=== PATIENT | female | born 1950 | race Two or more races ===

== ENCOUNTER 2019-04-30 09:11 | Outpatient (CLI) | payer OTHER | END 2019-04-30 11:43 | disposition home or self-care (01) | LOC: LAB 09:11 | DX: E55.9 Vitamin D deficiency, unspecified (principal); M85.88 Other specified disorders of bone density and structure, other site; E21.3 Hyperparathyroidism, unspecified; E88.89 Other specified metabolic disorders; M81.8 Other osteoporosis without current pathological fracture; E56.1 Deficiency of vitamin K; E13.69 Other specified diabetes mellitus with other specified complication; I11.0 Hypertensive heart disease with heart failure; D53.9 Nutritional anemia, unspecified; N39.0 Urinary tract infection, site not specified; E04.0 Nontoxic diffuse goiter; E78.2 Mixed hyperlipidemia ==

== ENCOUNTER → 2019-04-30 | Outpatient (CLI) | payer OTHER ==
[~2019-04-30] MED LIST: FOLIC ACID1 MG PO; GABAPENTIN800 MG; GLIMEPIRIDE4 MG PO; HEARTBURN TREAT15 MG; HUMALOG100 U/ML; HumaLOG 100 UNIT/1 ML (3ML) SUBCUTANEO; INTEGRA F CAPS1 EACH PO; LEVAQUIN500 MG; LISINOPRIL20 MG; Lantus 1000 U/10 ML SUBCUTANEO; MULTI VITAMIN1 EACH PO; NEURONTIN PO; NEURONTIN800 MG; Neurin-Sl Tablet Sl SL; PLAVIX75 MG; PROTONIX40 MG PO; SURFAK240 M1 PO
== END | disposition home or self-care (01) ==
LOC: RAD 10:53
DX: M79.604 Pain in right leg (principal); M79.671 Pain in right foot; M25.571 Pain in right ankle and joints of right foot

== ENCOUNTER 2019-11-19 08:39 | Outpatient (CLI) | payer OTHER | END 2019-11-19 15:00 | disposition home or self-care (01) | LOC: LAB 08:39 | DX: I11.0 Hypertensive heart disease with heart failure (principal); N39.0 Urinary tract infection, site not specified; E78.2 Mixed hyperlipidemia; N36.2 Urethral caruncle; E22.2 Syndrome of inappropriate secretion of antidiuretic hormone; E55.9 Vitamin D deficiency, unspecified ==

== ENCOUNTER 2019-11-30 09:05 | Outpatient (CLI) | payer OTHER | END 2019-11-30 09:11 | disposition home or self-care (01) | LOC: LAB 09:05 | DX: E11.22 Type 2 diabetes mellitus with diabetic chronic kidney disease (principal); N18.4 Chronic kidney disease, stage 4 (severe); I12.9 Hypertensive chronic kidney disease with stage 1 through stage 4 chronic kidney disease, or unspecified chronic kidney disease; D63.1 Anemia in chronic kidney disease; N25.81 Secondary hyperparathyroidism of renal origin; E78.2 Mixed hyperlipidemia; E79.0 Hyperuricemia without signs of inflammatory arthritis and tophaceous disease; E55.9 Vitamin D deficiency, unspecified; C50.412 Malignant neoplasm of upper-outer quadrant of left female breast ==

== ENCOUNTER 2020-02-03 08:51 | Outpatient (CLI) | payer OTHER | END 2020-02-03 08:59 | disposition home or self-care (01) | LOC: LAB 08:51 | DX: D53.8 Other specified nutritional anemias (principal); I11.0 Hypertensive heart disease with heart failure; N39.0 Urinary tract infection, site not specified; E78.2 Mixed hyperlipidemia; N18.5 Chronic kidney disease, stage 5; E11.22 Type 2 diabetes mellitus with diabetic chronic kidney disease; I12.9 Hypertensive chronic kidney disease with stage 1 through stage 4 chronic kidney disease, or unspecified chronic kidney disease; N18.4 Chronic kidney disease, stage 4 (severe); N25.81 Secondary hyperparathyroidism of renal origin; C50.412 Malignant neoplasm of upper-outer quadrant of left female breast ==

== ENCOUNTER 2020-02-15 11:14 | Outpatient (CLI) | payer OTHER | END 2020-02-15 15:00 | disposition home or self-care (01) | LOC: LAB 11:14 | DX: N39.0 Urinary tract infection, site not specified (principal) ==

== ENCOUNTER 2020-05-10 08:35 | Outpatient (CLI) | payer OTHER | END 2020-05-10 08:55 | disposition home or self-care (01) | LOC: LAB 08:35 | DX: E11.22 Type 2 diabetes mellitus with diabetic chronic kidney disease (principal); N18.4 Chronic kidney disease, stage 4 (severe); D63.1 Anemia in chronic kidney disease; N25.81 Secondary hyperparathyroidism of renal origin; E78.2 Mixed hyperlipidemia ==

== ENCOUNTER 2020-07-05 08:59 | Outpatient (CLI) | payer OTHER | END 2020-07-05 09:08 | disposition home or self-care (01) | LOC: LAB 08:59 | PROVIDERS: ATTEND Internal Medicine Endocrinology, Diabetes & Metabolism | DX: N18.4 Chronic kidney disease, stage 4 (severe) (principal); E11.22 Type 2 diabetes mellitus with diabetic chronic kidney disease; I12.9 Hypertensive chronic kidney disease with stage 1 through stage 4 chronic kidney disease, or unspecified chronic kidney disease; N25.89 Other disorders resulting from impaired renal tubular function; I11.0 Hypertensive heart disease with heart failure; D53.8 Other specified nutritional anemias; N39.0 Urinary tract infection, site not specified; M36.2 Hemophilic arthropathy; E78.2 Mixed hyperlipidemia; E04.8 Other specified nontoxic goiter; N36.2 Urethral caruncle ==

== ENCOUNTER 2020-07-22 08:49 | Outpatient (CLI) | payer OTHER | END 2020-07-22 08:54 | disposition home or self-care (01) | LOC: LAB 08:49 | PROVIDERS: ATTEND Internal Medicine Nephrology | DX: E11.22 Type 2 diabetes mellitus with diabetic chronic kidney disease (principal); N18.4 Chronic kidney disease, stage 4 (severe); I12.9 Hypertensive chronic kidney disease with stage 1 through stage 4 chronic kidney disease, or unspecified chronic kidney disease; N25.89 Other disorders resulting from impaired renal tubular function ==